=== PATIENT | female | born 1985 | race Caucasian/White ===

== ENCOUNTER 2025-04-15 12:48 | Emergency (ER) | payer SELFPAY ==
[~2025-04-15] VITALS: Ht 162.6 cm; Wt 65.0 kg
[2025-04-15 12:51] VITALS: O2SAT 98
[2025-04-15 13:49] LABS: BASOPHILS % 0.9 % (0.0-2.0); EOSINOPHILS % 0.6 % (0.0-5.0); HEMATOCRIT. 39.9 % (36.0-48.0); HEMOGLOBIN. 13.5 g/dL (12.0-16.0); LYMPHOCYTES % 50.8 % (20.0-50.0); MEAN PLATELET VOLUME 8.3 fl (7.4-10.4); MONOCYTES % 3.9 % (2.0-8.0); NEUTROPHILS % 43.8 % (40.0-76.0); PLATELET 248 x1000/uL (130-400); RED BLOOD CELL COUNT 3.99 mill/uL (4.2-5.4); RED CELL DISTRIBUTION WIDTH 13.3 % (11.6-14.6)
[2025-04-15 14:01] LABS: CREATININE 0.7 mg/dL (0.6-1.0); UREA NITROGEN BLOOD < 5 mg/dL (9-23)
[2025-04-15 14:02] LABS: HCG SCREEN NEGATIVE
[2025-04-15 14:03] LABS: INR 1.1
[2025-04-15 14:45] LABS: ETHANOL BLOOD 429 mg/dL (<10)
[2025-04-15] MEDS: IOHEXOL-350 100 ML BOTTLE ONE (15:02)
[2025-04-15] MEDS: SODIUM CHLORIDE 0.9% 1,000 ML IV ONE (16:15)
[2025-04-15] MEDS ORDERED: THIA50TA12 MT (16:32)
[2025-04-15 16:57] VITALS: BP 116/72; PULSE 92; RESP 16; TEMP 37; O2SAT 100
== END 2025-04-15 16:59 | disposition home or self-care (01) ==
LOC: ER 12:48
DX: I63.89 Other cerebral infarction (principal); R29.810 Facial weakness; I10 Essential (primary) hypertension; E11.9 Type 2 diabetes mellitus without complications
CPT/HCPCS: 80048; 80320; 84703; 85025; 85610; 85730; 36415; 71045; 70496; 70498; 70450; 93005; 96360; 99291; Q9967; J7030; Z7610; G0480